=== PATIENT | male | born 1965 | race Hispanic/Latino ===

== ENCOUNTER 2016-12-14 06:39 | Day surgery (SDC) | payer MEDICARE ==
[2016-12-14] MEDS ORDERED: Midazolam 2 MG/2 ML VIAL ONE (07:05)
[2016-12-14] MEDS ORDERED: ePHEDrine 50 mg/ml Inj ONE (08:36)
[2016-12-14 09:19] VITALS: BMI 28.1
[2016-12-14] MEDS ORDERED: HYDROmorphone 0.5 mg/0.5 ml ISec IVP PRN (09:53)
[2016-12-14] MEDS ORDERED: Lactated Ringer's 1,000 ML IV SCH (09:53)
[2016-12-14] MEDS ORDERED: Lactated Ringer's 1,000 ML IV ONE (10:00)
[2016-12-14 10:01] VITALS: RESP 18
[2016-12-14 12:04] VITALS: BP 143/78; PULSE 62; TEMP 97.6; O2SAT 98
--- NOTE | 2016-12-14 13:24 | MRI ---
PROCEDURE: MRI BRAIN WITHOUT CONTRAST HISTORY: CERVICAL RADICULOPATHY/HEAD INJURY COMPARISON: None. TECHNIQUE: Multiplanar, multisequence MR images of the brain were obtained without intravenous contrast enhancement. FINDINGS: HEMORRHAGE: None DWI: No evidence of an acute or early subacute infarction. BRAIN PARENCHYMA: No mass effect or edema. No atrophy or chronic microvascular ischemic changes. VENTRICLES: Unremarkable. No hydrocephalus. CRANIUM: Unremarkable. ORBITS: Grossly unremarkable. PARANASAL SINUSES/MASTOIDS: Mild sinuses mucosal thickening. VASCULAR SYSTEM: Skull base flow voids intact. OTHER FINDINGS: None. IMPRESSION: Mild sinuses mucosal thickening. No evidence of acute pathology in the brain. No evidence of mass lesion mass effect or midline shift.
--- NOTE | 2016-12-14 13:48 | MRI ---
PROCEDURE: MR CERVICAL SPINE WITHOUT CONTRAST HISTORY: CERVICAL RADICULOPATHY/ HEAD INJURY COMPARISON: None available. TECHNIQUE: Multiecho multiplanar sequences were performed through the cervical spine without the use of intravenous contrast. FINDINGS: Normal lordotic curvature. Craniocervical junction unremarkable. Vertebral body heights preserved. No marrow signal abnormality. Normal cervical cord. No paraspinal abnormality. C2-C3: No disc herniation, spinal canal stenosis or neural foraminal narrowing. C3-C4: There is a small disc bulging seen associated with mild spinal stenosis. No evidence of significant neural foraminal narrowing. C4-C5: There is a moderate-sized broad-based disc herniation associated with mild posterior ligament hypertrophy which resulting in moderate spinal and moderate bilateral neural foraminal narrowing. C5-C6: No disc herniation, spinal canal stenosis or neural foraminal narrowing. C6-C7: No disc herniation, spinal canal stenosis or neural foraminal narrowing. C7-T1: No disc herniation, spinal canal stenosis or neural foraminal narrowing. OTHER FINDINGS: None. IMPRESSION: Moderate size disc herniation at C4-C5 associated with mild posterior ligament hypertrophy which resulting in moderate spinal and bilateral neural foraminal narrowing. Small disc bulging at C3-C4 associated with mild spinal stenosis.
== END 2016-12-14 12:15 | disposition home or self-care (01) ==
LOC: H.OPSURG 06:39 → EDSTATUS 07:30 → H.OPSURG 12:15
PROVIDERS: ATTEND Internal Medicine
DX: M54.16 Radiculopathy, lumbar region (principal); E11.9 Type 2 diabetes mellitus without complications; E78.5 Hyperlipidemia, unspecified; I10 Essential (primary) hypertension; F43.10 Post-traumatic stress disorder, unspecified
CPT/HCPCS: 70551; 72141; J2250; J7120